=== PATIENT | male | born 1970 | race African-American/Black ===

== ENCOUNTER 2019-03-21 | Emergency (ER) | payer SELFPAY ==
[~2019-03-21] MED LIST: CYCLOBENZAPR10 MG PO; DILAUDID 2MG2 MG/TA1 PO; HYDROCHLOROT25 MG PO; LISINOPRIL20 M1 PO; OPANA ER40 M1 PO; TENORMIN PO
[2019-03-21] MEDS ORDERED: NORVASC5 M1 PO (18:00)
[2019-03-21] MEDS ORDERED: ALTOPREV40 MG PO (18:01)
[2019-03-21] MEDS ORDERED: PHENTERMINE H37.5 M1 PO (19:13)
[2019-03-21] MEDS ORDERED: [UNRECOGNIZED DRUG - OTHER] PO (19:13)
[2019-03-21] MEDS ORDERED: HYDROMORPHON8 MG PO (19:14)
[2019-03-21] MEDS ORDERED: LISINOPRIL40 MG PO (19:15)
[2019-03-21] MEDS ORDERED: ATENOLOL50 MG PO (19:15)
[2019-03-21] MEDS ORDERED: AMLODIPINE BESY10 MG PO (19:15)
[2019-03-21] MEDS ORDERED: LOVASTATIN40 M1 PO (19:16)
[2019-03-21] MEDS ORDERED: TESSALON PERLE100 MG PO (20:06)
[2019-03-21] MEDS ORDERED: ZPAK PO (20:06)
== END 2019-03-21 20:10 | disposition home or self-care (01) | DRG 153 ==
DX: J06.9 Acute upper respiratory infection, unspecified (principal); I10 Essential (primary) hypertension